=== PATIENT | male | born 1995 | race Caucasian/White ===

== ENCOUNTER 2017-01-02 13:52 | Emergency (ER) | payer OTHER ==
[~2017-01-02] VITALS: Ht 177.8 cm; Wt 71.0 kg
[2017-01-02 13:57] VITALS: TEMP 36.5; Ht 177.8 cm; Wt 71.0 kg
[2017-01-02] MEDS ORDERED: DOXYCYCLINE HYCLATE 100 MG CAP PO STA (14:14)
[2017-01-02] MEDS ORDERED: CEPHALEXIN MONOHYDRATE 250 MG CAP PO ONE (14:15)
[2017-01-02] MEDS ORDERED: LEVOFLOXACIN 250 MG TAB PO ONE (14:15)
[2017-01-02] MEDS ORDERED: FEXO1TAB49 PO (14:37)
[2017-01-02] MEDS ORDERED: THIA50TA3 PO (14:37)
--- NOTE | 2017-01-02 15:13 | DIAGNOSTIC IMAGING REPORT ---
LEFT FIFTH TOE 3 VIEWS CLINICAL HISTORY: Fifth toe laceration. FINDINGS: 3 views of the left fifth toe are obtained. No prior studies are available for comparison at the time of dictation. The skeletal structures are well mineralized. No fracture is seen. The fifth metatarsophalangeal and interphalangeal joints are well-maintained. The overlying soft tissues are normal as imaged. No radiodense foreign body is identified. IMPRESSION: 1. No acute bony abnormality is seen in the left fifth toe. 2. No radiodense foreign body is identified. Electronically signed by: Jordy Mac M.D. 01/02/2017 3:11 PM Dictated Date/Time: 01/02/2017 3:10 PM
--- NOTE | 2017-01-02 15:14 | DIAGNOSTIC IMAGING REPORT ---
TWO VIEW CHEST CLINICAL HISTORY: Cough and fever. FINDINGS: PA and lateral chest radiographs are obtained. No prior studies are available for comparison at the time of dictation. The cardiomediastinal silhouette is unremarkable. Minimal patchy airspace opacities are suspected in the right upper lobe. The lungs and pleural spaces are otherwise clear. There is no pneumothorax. The bony thorax appears intact. IMPRESSION: Patchy airspace opacities are identified in the right upper lobe. This likely represents a mild infectious/inflammatory pneumonitis. Radiographic follow-up to resolution is recommended. Electronically signed by: Jordy Mac M.D. 01/02/2017 3:12 PM Dictated Date/Time: 01/02/2017 3:12 PM
[2017-01-02] MEDS ORDERED: CEPH500C PO (15:33)
[2017-01-02] MEDS ORDERED: LEVO-18 PO (15:33)
[2017-01-02] MEDS ORDERED: DOXY100C2 PO (15:33)
[2017-01-02 15:48] VITALS: BP 135/86; PULSE 104; O2SAT 98
--- NOTE | 2017-01-02 20:07 | EMERGENCY ROOM VISIT NOTE ---
History Report prepared by August: Alla Kathleen Under the Supervision of: Dr. Raman Chiu M.D. First contact with patient: 14:09 Chief Complaint: TOE PAIN, INJURY Stated Complaint: CUT ON TOE History of Present Illness The patient is a 21 year old male who presents to the Emergency Room with complaints of persistent left toe pain that started one week ago. He states that his toe is still bleeding and throbbing even though the cut occurred one week ago. The patient states that he was in [facility] for spring break when he cut his toe. He states that he cut his toe on the first day of the trip when someone broke a glass door and it shattered. The shattered glass cut his toe and he thinks that he got all of the glass out. He tried to go to the hospital there, but they did not accept his health insurance so he would have had to pay [id number] and he did not have enough money on him. He adds that there was a medical staff on the trip that tried to disinfect his cut and they bandaged it for him regularly. The patient was swimming in the ocean with the cut. He states that his toe was bandaged when he was swimming. The patient developed a fever yesterday or the day before. The highest recorded fever was 101. The patient also states that he experienced nausea and vomiting the other day, but he has not experienced either since then. Additionally, the patient is experiencing sinus congestion and a productive cough with mucous-like sputum. He states that he had the cough and sinus congestion before he left for spring break. The patient's shots are up to date, including his tetanus shot. He states that the toe has red and appeared infected for most of the week. Source of History: patient Onset: one week ago Position: toe(s) (left) Quality: other (left toe pain) Timing: other (persistent) Modifying Factors (Relieving): other (none) Associated Symptoms: + cough (productive with mucous-like sputum), + fevers , + nausea, + vomiting Note: sinus congestion Review of Systems See HPI for pertinent positives & negatives. A total of 10 systems reviewed and were otherwise negative. Past Medical & Surgical Medical Problems: (1) Immunizations up to date Family History No pertinent family history Social History Smoking Status: Never Smoker Alcohol Use: occasionally Housing Status: lives with roommate Occupation Status: [employer] student Current/Historical Medications Scheduled Cephalexin Monohydrate (Keflex), 500 MG PO QID Doxycycline Hyclate (Vibramycin), 100 MG PO BID Fexofenadine Hcl (Agueda Allergy), 1 TAB PO DAILY Levofloxacin (Levaquin), 1 TAB PO DAILY Thiamine Hcl (Vitamin B-1), Unknown Dose PO DAILY Allergies Coded Allergies: No Known Allergies (Unverified , 01/02/17) Physical Exam Vital Signs Date Time Temp Pulse Resp B/P Pulse Ox O2 Delivery O2 Flow Rate FiO2 01/02/17 15:48 104 18 135/86 98 01/02/17 13:57 36.5 101 16 135/90 98 Room Air Physical Exam Constitutional: Vital signs reviewed. Eyes: Pupils are equal round reactive to light. Conjunctiva are noninjected. ENT: Pharynx is clear without erythema or exudate. Mucous membranes are moist. Neck supple without meningeal signs. Respiratory: Clear to auscultation bilaterally. Breath sounds are equal bilaterally. Cardiovascular: Regular rate and rhythm. No rubs or gallops. GI: Soft, nondistended and nontender. Bowel sounds are present. Musculoskeletal: Left fifth toe has superficial laceration medially with surrounding erythema and swelling along with purulent discharge. No tenderness proximally in the foot. Integumentary: As above. Neurological: The patient is awake and alert. No focal deficits. Psychiatric: Normal affect. Medical Decision & Procedures ER Provider Diagnostic Interpretation: X-ray results as stated below per interpretation by me and the radiologist: TWO VIEW CHEST IMPRESSION: Patchy airspace opacities are identified in the right upper lobe. This likely represents a mild infectious/inflammatory pneumonitis. Radiographic follow-up to resolution is recommended. Electronically signed by: Jordy Mac M.D. 01/02/2017 3:12 PM Dictated Date/Time: 01/02/2017 3:12 PM LEFT FIFTH TOE 3 VIEWS IMPRESSION: 1. No acute bony abnormality is seen in the left fifth toe. 2. No radiodense foreign body is identified. Electronically signed by: Jordy Mac M.D. 01/02/2017 3:11 PM Dictated Date/Time: 01/02/2017 3:10 PM Medications Administered Medications (Trade) Dose Ordered Sig/Thomas Route Start Time Stop Time Status Last Admin Dose Admin Levofloxacin (Levaquin Tab) 750 mg NOW ONCE PO 01/02/17 14:15 01/02/17 14:25 DC 01/02/17 15:42 750 MG Cephalexin Monohydrate (Keflex Cap) 500 mg NOW ONCE PO 01/02/17 14:15 01/02/17 14:25 DC 01/02/17 15:42 500 MG Doxycycline Hyclate (Vibramycin Cap) 100 mg NOW STAT PO 01/02/17 14:14 01/02/17 14:25 DC 01/02/17 15:42 100 MG ED Course 1410: The patient was evaluated in room D4. A complete history and physical exam was performed. 1414: Ordered Doxycycline Hyclate 100 mg PO, Keflex Cap 500 mg PO, Levaquin Tab 750 mg PO 1517: Upon reevaluation, the patient appeared to have improvement of his symptoms. I discussed andreea's findings with the patient. We had a long discussion about his infection and x-rays. We also discussed the increased potential for a C. Diff infection. He is going to follow-up with the Wound Clinic or [facility]. He verbalized agreement of the treatment plan. He was discharged home. 1539: I called and discussed the patient's care with his mother, per his request. Medical Decision This is a 21-year-old male presents with cold symptoms and a toe infection. Differential diagnosis includes viral syndrome, pneumonia, bronchitis, cellulitis, abscess, marine infection. I did perform a limited focused review of portions of the patient's old chart on the electronic medical record. The patient has prior visits to this hospital. I did evaluate the patient as noted above. The patient is presenting with an infection to his left fifth toe. He has a superficial cut which she sustained about a week ago. He states that it has been infected the entire week and he has been swimming in the ocean with it. He did have a fever and vomited last night but he also has flulike symptoms including cough and congestion. Likely his fever is arising from this. He does not appear septic or bacteremic. I did order and personally review the patient's chest and toe x-rays as described above. There is no evidence of fracture or dislocation or foreign body. He does have a right sided pneumonia on chest x-ray. In order to cover for his pneumonia as well as a marine infection I did treat him with Levaquin, Keflex and doxycycline per current recommendations. He was given precautions regarding C. difficile infection. I did discuss his case with his mother over the telephone per his request. He was advised follow with the wound clinic or [facility] in 2 days. He was discharged with a prescription for Levaquin, Keflex and doxycycline for 10 days. Impression Primary Impression: Right upper lobe pneumonia Additional Impression: Infected superficial injury of left foot or toe Scribe Attestation The scribe's documentation has been prepared under my direct and personally reviewed by me in its entirety. I confirm that the note above accurately reflects all work, treatment, procedures, and medical decision making performed by me. Departure Information Dispostion Home / Self-Care Prescriptions Levofloxacin (LEVAQUIN) 750 Mg Tab 1 TAB PO DAILY for 10 Days, #9 TAB Prov: Raman Chiu M.D. 01/02/17 Cephalexin Monohydrate (Keflex) 500 Mg Cap 500 MG PO QID for 10 Days, #39 CAP Prov: Raman Chiu M.D. 01/02/17 Doxycycline Hyclate (VIBRAMYCIN) 100 Mg Cap 100 MG PO BID for 10 Days, #19 CAP Prov: Raman Chiu M.D. 01/02/17 Referrals No Doctor, Assigned (PCP) Forms HOME CARE DOCUMENTATION FORM, IMPORTANT VISIT INFORMATION, WORK / SCHOOL INSTRUCTIONS Patient Instructions My [facility], Pneumonia Dc Additional Instructions You have been examined and treated today on an emergency basis only. This is not a substitute for, or an effort to provide, complete comprehensive medical care. It is impossible to recognize and treat all injuries or illnesses in a single emergency department visit. It is therefore important that you follow up closely with [facility] or the wound care clinic in 48 hours. Call as soon as possible for an appointment. Return for worsening symptoms or if you develop significant swelling to your toe, redness moving up into your foot, difficulty breathing or any other concerning symptoms. Problem Qualifiers Primary Impression: Right upper lobe pneumonia Pneumonia type: due to unspecified organism Qualified Codes: J18.1 - Lobar pneumonia, unspecified organism
== END 2017-01-02 15:49 | disposition home or self-care (01) ==
LOC: C.EDB 13:54 → C.EDD 15:49
DX: J18.1 Lobar pneumonia, unspecified organism (principal); S90.935A Unspecified superficial injury of left lesser toe(s), initial encounter; R50.9 Fever, unspecified; Z79.899 Other long term (current) drug therapy; W25.XXXA Contact with sharp glass, initial encounter

== ENCOUNTER 2017-06-27 13:10 | Emergency (ER) | payer OTHER ==
[~2017-06-27] VITALS: Ht 180.3 cm; Wt 78.0 kg
[~2017-06-27 13:10] MED LIST: DOXY100C2 PO; FEXO1TAB49 PO; THIA50TA3 PO
[2017-06-27 13:17] VITALS: BP 148/92; PULSE 96; TEMP 36.9; O2SAT 97; Ht 180.3 cm; Wt 78.0 kg
[2017-06-27] MEDS ORDERED: LIDOCAINE/EPINEPHRINE 1% 20 ML VIAL INFIL ONE (14:00)
[2017-06-27] MEDS ORDERED: CEPHALEXIN 500MG HOME PACK 1 EA BTL PO ONE (14:00)
[2017-06-27] MEDS ORDERED: CEPH500C PO (14:52)
--- NOTE | 2017-06-27 14:53 | EMERGENCY ROOM VISIT NOTE ---
ED Visit Note First contact with patient: 13:20 CHIEF COMPLAINT: Right leg laceration HISTORY OF PRESENT ILLNESS: This 21-year-old male patient presents to the emergency department ambulatory for evaluation of a laceration to the right leg. The patient states that yesterday afternoon, he was running and ran into a brick stairs. He sustained a laceration to the lower leg. He states that his friends father is a physician and told him that he should have sutures. There is no active bleeding. He rates the discomfort a 4/10. There is no numbness or weakness of the leg. His tetanus shot is up-to-date. REVIEW OF SYSTEMS: A 6 system review of systems was completed with positives and pertinent negatives listed in the HPI. ALLERGIES: No known drug allergies MEDICATIONS: No chronic medications PMH: No significant past medical history. SOCIAL HISTORY: The patient is a [employer] student and lives with roommates. PHYSICAL EXAM: Vital Signs: Reviewed Nurse's notes, vital signs stable. GENERAL : This is a 21-year-old male, in no acute distress, well-developed, well- nourished. SKIN: There is a 3 cm long laceration on the anterior aspect of the right lower leg. The edges gape apart with traction. There is no foreign material in the wound and it looks clean. There is no active bleeding. No deep structures such as tendons, bones, or significant blood vessels are seen in the base of the wound. Normal strength and movement of the leg. Capillary refill less than 2 seconds. Normal sensation to light and sharp touch. EMERGENCY DEPARTMENT COURSE: I examined the patient. Verbal consent was obtained to perform the procedure. Using sterile technique the wound was cleansed with Betadine. The area was sterilely draped. 5 ml of 1% buffered lidocaine was used to anesthetize the laceration on the leg. Once the patient was anesthetized, the wound was copiously irrigated under pressure with sterile saline. The wound was explored and was as described above. The laceration was repaired using 3 simple interrupted 5-0 nylon sutures with the wound edges being well approximated. The patient tolerated the procedure well. Hemostasis was achieved. The area was cleaned with sterile saline and dressed with bacitracin ointment and bandage. The patient will be placed on Keflex, as this laceration occurred almost 24 hours ago. The patient was discharged home in good condition. Medication reconciliation: I attest that I have personally reviewed the patient 's current medication list. Blood Pressure Screening: Patient was found to have a slightly elevated blood pressure due to circumstances. I do not believe that the patient requires hypertension monitoring. DIAGNOSIS: Right leg laceration Current/Historical Medications Scheduled Cephalexin Monohydrate (Keflex), 500 MG PO QID Fexofenadine Hcl (Agueda Allergy), 1 TAB PO DAILY Allergies Coded Allergies: No Known Allergies (Unverified , 06/27/17) Vital Signs Date Time Temp Pulse Resp B/P (MAP) Pulse Ox O2 Delivery O2 Flow Rate FiO2 06/27/17 13:17 36.9 96 16 148/92 97 Room Air Medications Administered Medications (Trade) Dose Ordered Sig/Thomas Route Start Time Stop Time Status Last Admin Dose Admin Lidocaine/ Epinephrine (Xylocaine/Epine 1% Inj) 20 ml ONE ONCE INFIL 06/27/17 14:00 06/27/17 14:01 DC 06/27/17 14:00 20 ML Cephalexin Monohydrate (Keflex 500MG Home Pack) 1 homepack NOW ONCE PO 06/27/17 14:00 06/27/17 14:01 DC 06/27/17 14:00 1 HOMEPACK Departure Information Impression Primary Impression: Laceration of lower extremity Dispostion Home / Self-Care Condition GOOD Prescriptions Cephalexin Monohydrate (Keflex) 500 Mg Cap 500 MG PO QID for 4 Days, #16 CAP Prov: Sakshi Blair PA-C 06/27/17 Referrals [facility] (PCP) Patient Instructions My [facility] Additional Instructions You have received 3 sutures on your leg. These sutures are NOT dissolvable and WILL need to be removed by a health care provider in 12-14 days. You can return to the Emergency Department or contact your Primary Care Provider to have the sutures removed. Keflex as prescribed for a total of 5 days. Proper wound care is essential for adequate wound healing and infection prevention. You can shower and clean the wound with soap and water. Do not scour over the wound, pat dry with a towel. Do not submerse the wound (i.e. bathe or dish wash) until the sutures have been removed. You can use an antibiotic ointment with a dressing over the wound for the next 3-4 days. After this time you may leave the wound dry and open to the air. If crust develops over the wound you can use a Q-tip to apply a 1:1 peroxide:water solution to clean the wound. Look for signs of infection of the wound including: increased pain, swelling, foul discharge, streaking, or increased temperature. If any of these are noticed you should return to the Emergency Department for further assessment and treatment. As with any laceration you may have received nerve damage to the surrounding tissues. This damage may or may not be permanent. You should keep the area covered with sunscreen for the first 6 months to 1 year when at risk for exposure to help minimize scarring. You can also use scar reducing creams or Vitamin E oil to help minimize scarring. For pain control, you can use the following [id number] medicines (if >12 yo): - Regular strength (325mg/tab) Tylenol (acetaminophen) 2 tabs every 4-6 hours as needed. Do not exceed 12 tablets in a 24 hour period. Avoid taking more than 4 grams (4000 mg) of Tylenol per day. This includes any other sources of acetaminophen you may take on a regular basis. - Regular strength (200 mg/tab) Advil (ibuprofen) 1-2 tabs every 4-6 hours as needed. Do not exceed a dose of 3200 mg per day. Return to the emergency department if your symptoms worsen despite treatment course outlined above. Problem Qualifiers Primary Impression: Laceration of lower extremity Encounter type: initial encounter Laterality: right Qualified Codes: S81.811A - Laceration without foreign body, right lower leg, initial encounter
== END 2017-06-27 15:13 | disposition home or self-care (01) ==
LOC: C.EDB 13:11 → C.EDD 15:13
DX: S81.811A Laceration without foreign body, right lower leg, initial encounter (principal); W22.8XXA Striking against or struck by other objects, initial encounter; Y92.9 Unspecified place or not applicable; Y93.02 Activity, running

== ENCOUNTER 2017-07-10 16:08 | Emergency (ER) | payer OTHER ==
[~2017-07-10 16:08] MED LIST changes: -DOXY100C2 PO; -THIA50TA3 PO
[2017-07-10 16:12] VITALS: TEMP 36.6
--- NOTE | 2017-07-10 16:30 | EMERGENCY ROOM VISIT NOTE ---
History Report prepared by August: Aromnd Luz Under the Supervision of: Dr. Jani Diaz D.O. First contact with patient: 16:20 Chief Complaint: SUTURE/STAPLE REMOVAL Stated Complaint: STITCHES REMOVED Nursing Triage Summary: here to have 3 sutures removed from right lower leg placed on History of Present Illness The patient is a 21 year old male who presents to the Emergency Room for a suture removal from his right leg. The patient states that he cut his leg earlier in the month falling on steps. He states that he got stitches, and he has been taking antibiotics. He denies any medical problems, surgical history, and he states that he does not use tobacco or alcohol. The patient additionally denies any chest pain or abdominal pain. Source of History: patient Position: leg (right) Quality: other (suture removal) Associated Symptoms: No chest pain, No abdominal pain Review of Systems See HPI for pertinent positives & negatives. A total of 6 systems reviewed and were otherwise negative. Past Medical & Surgical Medical Problems: (1) Immunizations up to date Family History Cancer Social History Smoking Status: Never Smoker Alcohol Use: occasionally Housing Status: lives with roommate Occupation Status: [employer] student Current/Historical Medications Scheduled Fexofenadine Hcl (Agueda Allergy), 1 TAB PO DAILY Allergies Coded Allergies: No Known Allergies (Unverified , 06/27/17) Physical Exam Vital Signs Date Time Temp Pulse Resp B/P (MAP) Pulse Ox O2 Delivery O2 Flow Rate FiO2 07/10/17 16:33 78 18 99 07/10/17 16:12 36.6 82 18 151/88 97 Physical Exam GENERAL: Patient is awake, alert, and in no acute distress. Patient is resting comfortably and showing no signs of anxiety EYES: The conjunctivae are clear. The pupils are round and reactive. EARS, NOSE, MOUTH AND THROAT: The nose is without any evidence of any deformity. Mucous membranes are moist tongue is midline RESPIRATORY: Normal respiratory effort is noted there is no evidence of wheezing rhonchi or rales CARDIOVASCULAR: Regular rate and rhythm noted there no murmurs rubs or gallops normal S1 normal S2 GASTROINTESTINAL: The abdomen is soft. Bowel sounds are present in all quadrants. Abdomen is nontender MUSCULOSKELETAL/EXTREMITIES: There is no evidence of gross deformity full range of motion is noted in the hips and shoulders SKIN: There is a healing laceration noted on the right anterior leg. No erythema or drainage was noted. There is no obvious evidence of any rash. There are no petechiae, pallor or cyanosis noted. NEUROLOGIC: Patient is awake alert and oriented x3 Medical Decision & Procedures ED Course 1620: The patient was evaluated in room D6. A complete history and physical examination were performed. I discussed discharge instructions with the patient , and he will be discharged home. Medical Decision Nursing notes reviewed. Differential diagnosis could include wound infection foreign body wound failure underlying injury and other differential diagnoses were considered. The patient is a 21-year-old male who presented to the emergency department for an evaluation of a healing right leg laceration. He requested suture removal. The sutures were placed and appropriate time ago. The sutures were removed in usual fashion. There is no signs of dehiscence or infection. The patient tolerated procedure well. He was encouraged to follow-up with his doctor for reevaluation. He was also encouraged to continue doing wound dressing with triple antibiotic ointment and return to the emergency department immediately if signs of infection develop or any other worrisome symptoms develop such as pain swelling fever or drainage or dehiscence. Impression Primary Impression: Visit for suture removal Scribe Attestation The scribe's documentation has been prepared under my direction and personally reviewed by me in its entirety. I confirm that the note above accurately reflects all work, treatment, procedures, and medical decision making performed by me. Departure Information Dispostion Home / Self-Care Referrals [facility] (PCP) Forms HOME CARE DOCUMENTATION FORM, IMPORTANT VISIT INFORMATION Patient Instructions ED Wound Check Sutr Remove No Infec, My [facility]
[2017-07-10 16:33] VITALS: BP 148/80; PULSE 78; O2SAT 99
== END 2017-07-10 16:34 | disposition home or self-care (01) ==
LOC: C.EDB 16:09 → C.EDD 16:34
DX: S81.811D Laceration without foreign body, right lower leg, subsequent encounter (principal); W10.9XXD Fall (on) (from) unspecified stairs and steps, subsequent encounter

== ENCOUNTER 2018-06-19 14:58 | Emergency (ER) | payer OTHER ==
[~2018-06-19] VITALS: Ht 179.1 cm; Wt 66.6 kg
[2018-06-19 15:02] VITALS: TEMP 36.5; Ht 179.1 cm; Wt 66.6 kg
[2018-06-19 15:38] LABS: BASO % 0.3 %; BASO ABS # 0.02 K/uL (0-0.2); EOS % 3.9 %; EOS ABS # 0.29 K/uL (0-0.5); HEMATOCRIT 45.3 % (42-52); HEMOGLOBIN 15.4 g/dL (14.0-18.0); IG# 0.01 K/uL (0.00-0.02); LYMPH % 27.1 %; LYMPH ABS # 2.01 K/uL (1.2-3.4); MEAN CELL VOLUME 88.6 fL (80-100); MEAN CORPUSCULAR HEMOGLOBIN 30.1 pg (25-34); MONO % 7.2 %; MONO ABS # 0.53 K/uL (0.11-0.59); NEUT % 61.4 %; NEUT ABS # 4.55 K/uL (1.4-6.5); PLATELET COUNT 254 K/uL (130-400); RED CELL DISTRIBUTION WIDTH CV 12.9 % (11.5-14.5); RED CELL DISTRIBUTION WIDTH SD 41.6 fL (36.4-46.3); WHITE BLOOD COUNT 7.41 K/uL (4.8-10.8)
[2018-06-19 16:05] LABS: ALBUMIN 3.8 gm/dl (3.4-5.0); CALCIUM 9.1 mg/dl (8.5-10.1); CREATININE 0.85 mg/dl (0.60-1.40); POTASSIUM 3.8 mmol/L (3.5-5.1); TOTAL PROTEIN 7.4 gm/dl (6.4-8.2)
[2018-06-19] MEDS ORDERED: ALBE1TAB PO (16:49)
--- NOTE | 2018-06-19 17:17 | Pharmacy Progress Note ---
ED Pharmacist Progress Note Date of Service: Jun 19, 2018. Albendazole not available at [facility]. Called [facility] - albendazole not in stock but likely will be able to order for tomorrow. [facility] pharmacist (Edgar) noted intent to call back if it cannot be procured tomorrow. Albendazole could not be electronically transmitted, therefore per Dr. Kate's request, called in a verbal order to [facility] for the following: Albendazole 200 mg tab 2 tablets (400 mg) by mouth x1 dose, 0 refill
[2018-06-19 17:38] VITALS: BP 147/87; PULSE 67; O2SAT 99
--- NOTE | 2018-06-19 20:11 | EMERGENCY ROOM VISIT NOTE ---
History Report prepared by Cinthiaibdaryn: Beatriz Vivas Under the Supervision of: Nikki ClarkO. First contact with patient: 15:11 Chief Complaint: OTHER COMPLAINT Stated Complaint: POSSIBLE TAPE WORM;PULLED LIKE OBJECTS OUT OF BUTT History of Present Illness The patient is a 22 year old male who presents to the Emergency Room with complaints of worsening abdominal pain that onset 3 days ago. The patient notes that he went to the bathroom and when he wiped, he noticed something was hanging out of his rectum. He notes that he started to pull it out and that it looked like "a long noodle". He states that he went to [place] a year ago and studied abroad in [place] from October - February of 2018. He states that he eats sushi on a weekly basis. Denies any other trips. The patient complains of abdominal cramping, gas, and diarrhea. Abdominal pain has been there for over a year. He notes that recently over the past several days it has worsened. The patient denies cough, rhinorrhea, chest pain, shortness of breath, and fever. Source of History: patient Onset: 3 days ago Position: abdomen Quality: cramping Timing: worsening Associated Symptoms: + diarrhea, No fevers, No cough, No chest pain, No SOB Review of Systems See HPI for pertinent positives & negatives. A total of 10 systems reviewed and were otherwise negative. Past Medical & Surgical Medical Problems: (1) Immunizations up to date Family History Cancer Social History Smoking Status: Current Some Day Smoker Alcohol Use: occasionally Housing Status: lives with roommate Occupation Status: [employer] student Current/Historical Medications Scheduled Albendazole (Albenza), 400 MG PO once Allergies Coded Allergies: No Known Allergies (Unverified , 06/27/17) Physical Exam Vital Signs Date Time Temp Pulse Resp B/P (MAP) Pulse Ox O2 Delivery O2 Flow Rate FiO2 06/19/18 17:38 67 16 147/87 99 06/19/18 15:02 36.5 87 20 154/85 98 Room Air Physical Exam GENERAL: Sitting up in bed, alert, well appearing, well nourished, no distress, non-toxic EYE EXAM: normal conjunctiva. OROPHARYNX: no exudate, no erythema, lips, buccal mucosa, and tongue normal and mucous membranes are moist NECK: supple, no nuchal rigidity, no adenopathy, non-tender LUNGS: Clear to auscultation. Normal chest wall mechanics HEART: no murmurs, S1 normal and S2 normal ABDOMEN: abdomen soft, non-tender, normo-active bowel sounds, no masses, no rebound or guarding. BACK: Back is symmetrical on inspection and there is no deformity, no midline tenderness, no CVA tenderness. SKIN: no rashes and no bruising UPPER EXTREMITIES: upper extremities are grossly normal. LOWER EXTREMITIES: No pitting edema. NEURO EXAM: Normal sensorium, cranial nerves II-XII grossly intact, normal speech, no gross weakness of arms, no gross weakness of legs. Medical Decision & Procedures Laboratory Results 06/19/18 15:25 Red Blood Count 5.11, Mean Corpuscular Volume 88.6, Mean Corpuscular Hemoglobin 30.1, Mean Corpuscular Hemoglobin Concent 34.0, Mean Platelet Volume 10.0, Neutrophils (%) (Auto) 61.4, Lymphocytes (%) (Auto) 27.1, Monocytes (%) (Auto) 7.2, Eosinophils (%) (Auto) 3.9, Basophils (%) (Auto) 0.3, Neutrophils # (Auto) 4.55, Lymphocytes # (Auto) 2.01, Monocytes # (Auto) 0.53, Eosinophils # (Auto) 0.29, Basophils # (Auto) 0.02 06/19/18 15:25 Test 06/19/18 15:25 06/19/18 16:00 White Blood Count 7.41 K/uL (4.8-10.8) Red Blood Count 5.11 M/uL (4.7-6.1) Hemoglobin 15.4 g/dL (14.0-18.0) Hematocrit 45.3 % (42-52) Mean Corpuscular Volume 88.6 fL (80-100) Mean Corpuscular Hemoglobin 30.1 pg (25-34) Mean Corpuscular Hemoglobin Concent 34.0 g/dl (32-36) Platelet Count 254 K/uL (130-400) Mean Platelet Volume 10.0 fL (7.4-10.4) Neutrophils (%) (Auto) 61.4 % Lymphocytes (%) (Auto) 27.1 % Monocytes (%) (Auto) 7.2 % Eosinophils (%) (Auto) 3.9 % Basophils (%) (Auto) 0.3 % Neutrophils # (Auto) 4.55 K/uL (1.4-6.5) Lymphocytes # (Auto) 2.01 K/uL (1.2-3.4) Monocytes # (Auto) 0.53 K/uL (0.11-0.59) Eosinophils # (Auto) 0.29 K/uL (0-0.5) Basophils # (Auto) 0.02 K/uL (0-0.2) RDW Standard Deviation 41.6 fL (36.4-46.3) RDW Coefficient of Variation 12.9 % (11.5-14.5) Immature Granulocyte % (Auto) 0.1 % Immature Granulocyte # (Auto) 0.01 K/uL (0.00-0.02) Anion Gap 9.0 mmol/L (3-11) Est Creatinine Clear Calc Drug Dose 129.5 ml/min Estimated GFR () 144.4 Estimated GFR (Non- 124.6 BUN/Creatinine Ratio 15.4 (10-20) Calcium Level 9.1 mg/dl (8.5-10.1) Total Bilirubin 0.6 mg/dl (0.2-1) Direct Bilirubin 0.2 mg/dl (0-0.2) Aspartate Amino Transf (AST/SGOT) 18 U/L (15-37) Alanine Aminotransferase (ALT/SGPT) 28 U/L (12-78) Alkaline Phosphatase 114 U/L (45-117) Total Protein 7.4 gm/dl (6.4-8.2) Albumin 3.8 gm/dl (3.4-5.0) Lipase 119 U/L (73-393) Laboratory results per my review. ED Course ED COURSE: Vital signs were reviewed and showed situational hypertension. The patients medical record was reviewed The above diagnostic studies were performed and reviewed. ED treatments and interventions as stated above. 1575: The patient was evaluated in room B04. A complete history and physical examination was performed. 1642: Upon reevaluation, the patient is resting comfortably. I discussed my findings with the patient and he understands and agrees with the treatment plan. Based on the patients age, coexisting illnesses, exam and lab findings the decision to treat as an outpatient was made. The patient remained stable while under my care. The patient appeared well at the time of discharge. Medical Decision Differential diagnoses includes but is not limited to gastritis, peptic ulcer disease, GERD, gallbladder disease, pancreatitis, small bowel obstruction, acute coronary syndrome, pericarditis, ischemic bowel, irritable bowel disease, irritable bowel syndrome, appendicitis, diverticulitis, malignancy, hernia, urinary tract infection, torsion, /ectopic (if female), perforation, trauma, infectious. Patient is a 22-year-old male who presents the ER for abdominal cramping which is been present over the past year but worsened over the past 3 days. Recently today he removed to arms from his stool. Did have recent travel to [facility] but returned back in February. He notes he does eat sushi on a regular basis. Worm appeared close to 3 feet in length and was pale white with septae. This was sent to lab. Based on his history we did treat him with albendazole. Hospital does not have currently any of this medication. Did call her on the pharmacy and they will be able to obtain this by tomorrow afternoon. Patient was updated at bedside. Mom's questions were answered. He was instructed to follow -up with S in the next 72 hours. Discussed with Pt concerning signs and symptoms to watch out for. Pt was instructed to follow up with their PCP and discussed with the patient their option to return to the ED at anytime for persistent or worsening symptoms. The appropriate anticipatory guidance and out- patient management, including indications for return to the emergency department , were explained at length to the patient and understood. Medication Reconcilliation Current Medication List: was personally reviewed by me Blood Pressure Screening Patient's blood pressure: Elevated blood pressure Blood pressure disposition: Elevated BP felt to be situational Impression Primary Impression: Parasite infection Scribe Attestation The scribe's documentation has been prepared under my direction and personally reviewed by me in its entirety. I confirm that the note above accurately reflects all work, treatment, procedures, and medical decision making performed by me. Departure Information Dispostion Home / Self-Care Prescriptions Albendazole (ALBENZA) 200 Mg Tab 400 MG PO once for 1 Day Prov: Yogi Kate, DO 06/19/18 Referrals No Doctor, Assigned (PCP) Forms HOME CARE DOCUMENTATION FORM, IMPORTANT VISIT INFORMATION, WORK / SCHOOL INSTRUCTIONS Patient Instructions My [facility] Additional Instructions Please follow up with your primary care doctor with in the next 24 hours. Any worsening of your symptoms, please return to the ED immediately. This includes any fevers greater than 100.4, worsening pain, chest pain, shortness breath, persistent nausea, vomiting, unable to eat or drink, blood in your stool, or any other concerning signs or symptoms from your standpoint. Please follow-up with your pharmacy tomorrow and make sure you take a one-time dose. You must follow-up with [facility] within the next 3 days.
== END 2018-06-19 17:39 | disposition home or self-care (01) ==
LOC: C.EDB 15:00
DX: B82.9 Intestinal parasitism, unspecified (principal); R03.0 Elevated blood-pressure reading, without diagnosis of hypertension; Z72.0 Tobacco use